=== PATIENT | female | born 1965 | race Caucasian/White ===

== ENCOUNTER → 2018-04-20 | Outpatient (CLI) | payer OTHER ==
[~2018-04-20] MED LIST: MULT-207 PO; PERC5TAB12 PO
[2018-04-20 09:23] LABS: ALBUMIN 3.6 GM/DL (3.4-5.0); AST (GOT) 14 U/L (15-37); BICARBONATE 26.2 MEQ/L (21.0-32.0); BLOOD UREA NITROGEN 9 MG/DL (7-18); CALCIUM 8.8 MG/DL (8.5-10.1); CHLORIDE 106 MEQ/L (98-107); CREATININE 0.71 MG/DL (0.50-1.00); GLOMERULAR FILTRATION RATE 87 ML/MIN (>89); GLUCOSE,FASTING 77 MG/DL (74-99); SODIUM (NA) 141 MEQ/L (136-145)
[2018-04-20 09:27] LABS: AUTOMATED NEUTROPHIL # 0.7 TH/MM3 (1.8-7.7); BASOPHIL % 0.3 % (0.0-2.0); EOSINOPHIL % 2.1 % (0.0-4.0); HEMATOCRIT 38.6 % (35.0-46.0); HEMOGLOBIN 12.9 GM/DL (11.6-15.3); LYMPH % 53.5 % (9.0-44.0); LYMPHOCYTE # 1.2 TH/MM3 (1.0-4.8); MEAN CELL VOLUME 89.3 FL (80.0-100.0); MEAN CORPUSCULAR HEMOGLOBIN 29.9 PG (27.0-34.0); MEAN CORPUSCULAR HGB CONC 33.5 % (32.0-36.0); MONO % 13.6 % (0.0-8.0); MONOCYTE # 0.3 TH/MM3 (0-0.9); NEUT % 30.5 % (16.0-70.0); PLATELET COUNT 256 TH/MM3 (150-450); RED BLOOD COUNT 4.33 MIL/MM3 (4.00-5.30); RED CELL DISTRIBUTION WIDTH 13.8 % (11.6-17.2); WHITE BLOOD COUNT 2.2 TH/MM3 (4.0-11.0)
[2018-04-20 09:29] LABS: ALKALINE PHOSPHATASE 41 U/L (45-117); ALT (GPT) 15 U/L (10-53); TOTAL BILIRUBIN ADULT 0.2 MG/DL (0.2-1.0); TOTAL PROTEIN 6.9 GM/DL (6.4-8.2)
[2018-04-20 10:04] LABS: BACTERIA, URINE RARE /hpf; BILIRUBIN, URINE NEG (NEG); BLOOD, URINE TRACE (NEG); GLUCOSE,URINE NEG (NEG); KETONE, URINE NEG (NEG); NITRITE,URINE NEG (NEG); SQUAMOUS EPITHELIAL CELL URINE 2 /hpf (0-5); URINE COLOR YELLOW (YELLW/STRAW); URINE LEUKOCYTE ESTERASE NEG (NEG)
[2018-04-20 10:10] LABS: LYMPHOCYTES 46 % (9-44); MONOCYTES 13 % (0-8); NEUTROPHIL # MANUAL DIFF 0.8 TH/MM3 (1.8-7.7); POLYS (SEG NEUTROPHILS) 38 % (16-70)
[2018-04-20 10:11] LABS: ACANTHOCYTES OCC (NORMAL)
--- NOTE | 2018-04-20 17:21 | EKG ---
Date Performed: 04/20/2018 Time Performed: 08:26:37 PTAGE: 52 years EKG: Sinus rhythm LOW QRS VOLTAGE IN PRECORDIAL LEADS BORDERLINE ECG NO PREVIOUS TRACING DOCTOR: Yordy Diallo Interpretating Date/Time 04/20/2018 17:19:19
== END ==
LOC: CPRE 07:58
PROVIDERS: ATTEND Obstetrics & Gynecology
DX: Z01.810 Encounter for preprocedural cardiovascular examination (principal); Z01.812 Encounter for preprocedural laboratory examination; N92.0 Excessive and frequent menstruation with regular cycle; D25.9 Leiomyoma of uterus, unspecified; N75.0 Cyst of Bartholin's gland; R10.2 Pelvic and perineal pain; R94.31 Abnormal electrocardiogram [ECG] [EKG]
CPT/HCPCS: 36415; 80053; 81001; 84703; 85007; 85027; 93005

== ENCOUNTER 2018-10-11 05:50 | Inpatient (IN) ==
[2018-10-11] MEDS ORDERED: Metoprolol Tartrate 25 MG Tablet PO ONE (06:37)
[2018-10-11] MEDS ORDERED: Chlorhexidine Gluconate 2% 1 Pack (2 Cloths) TOPICAL ONE (06:37)
[2018-10-11] MEDS ORDERED: Sodium Chlor 0.9% Inj 500 ML IV.SIG SCH (07:00)
[2018-10-11] MEDS ORDERED: ceFAZolin 2 GM Premix Inj 2 GM/50 ML PIGGYBACK IV.SIG SCH (07:00)
[2018-10-11] MEDS ORDERED: Microfibrillar Collagen Hemostat 1 GM Packet TOPICAL ONE (07:08)
[2018-10-11] MEDS ORDERED: Morphine Inj 4 MG/ML Vial ONE (07:08)
[2018-10-11] MEDS ORDERED: fentaNYL Citrate Inj 250 MCG/5 ML Ampul ONE (07:08)
[2018-10-11] MEDS ORDERED: Ibuprofen 600 MG Tablet PO PRN (11:23)
[2018-10-11] MEDS ORDERED: Naloxone Inj 0.4 MG/ML Vial IV.PUSH PRN (11:23)
--- NOTE | 2018-10-11 11:31 | P.BOP ---
- Preoperative Diagnosis (1) Leiomyoma (2) Pelvic pain (3) Dyspareunia (4) Menorrhagia (5) Cyst of left Bartholin's gland duct - Postoperative Diagnosis (1) Dyspareunia (2) Leiomyoma (3) Menorrhagia (4) Pelvic pain (5) Cyst of left Bartholin's gland duct Date of procedure: 10/11/18 Procedure: Exam under anesthesia, left Bartholin gland removal, total abdominal hysterectomy, bilateral salpingectomy Anesthesia: GETA Surgeon: Dorothea Rivera MD Cinema Operator: Kristyn Teixeira Estimated blood loss (mL): 200 IV fluids (mL): 1,600 Urine output (mL): 300 Pathology: other (left bartholin gland cyst, uterus, cervix, bilateral fallopian tubes) Condition: stable Disposition: PACU
[2018-10-11] MEDS ORDERED: Morphine Inj 30 MG/30 ML PCA.VIAL PCA ONE (11:36)
[2018-10-11] MEDS ORDERED: *Meperidine Inj 25 MG/ML Vial PERIprocedural Use ONLY ONE (11:52)
[2018-10-11] MEDS ORDERED: *Ondansetron Inj 4 MG/2 ML Vial PERIprocedural Use ONLY ONE (11:56)
[2018-10-11] MEDS ORDERED: *HYDROmorphone PF Inj 1 MG/ML Ampul PERIprocedural Use ONLY ONE (12:30)
[2018-10-11] MEDS: Morphine Inj 30 MG/30 ML PCA.VIAL PCA PRN ×2 (12:31→20:43)
[2018-10-11] MEDS: Docusate Sodium 100 MG Capsule PO SCH ×2 (20:46→22:11)
--- NOTE | 2018-10-11 22:18 | MP ---
cc: Dorothea Rivera MD DATE OF OPERATION: 10/11/2018 PREOPERATIVE DIAGNOSES: 1. Fibroid uterus. 2. Menorrhagia. 3. Dyspareunia. 4. Left Bartholin gland cyst. POSTOPERATIVE DIAGNOSES: 1. Fibroid uterus. 2. Menorrhagia. 3. Dyspareunia. 4. Left Bartholin gland cyst. PROCEDURE PERFORMED: 1. Exam under anesthesia. 2. Left Bartholin gland removal. 3. Total abdominal hysterectomy with bilateral salpingectomy. SURGEON: Dorothea Rivera MD SILICA FILTER OPERATOR: Kristyn Teixeira MD ANESTHESIA: General endotracheal anesthesia. ESTIMATED BLOOD LOSS: 200 mL. INTRAVENOUS FLUIDS: 1600 mL of lactated Ringer's. URINE OUTPUT: 300 mL. PREOPERATIVE ANTIBIOTICS: Ancef 2 grams IV preoperatively. DEEP VENOUS THROMBOSIS PROPHYLAXIS: SCDs on bilateral extremities. COMPLICATIONS: None. COUNTS: Correct. SPECIMENS: Uterus, cervix, bilateral fallopian tubes, separately left Bartholin gland. INTRAOPERATIVE FINDINGS: A markedly enlarged uterus of approximately 18 cm in size with several fibroids over 3 cm in size, small atrophic-appearing ovaries, normal fallopian tubes, narrow pelvis with prominent sacrum, left Bartholin gland cyst of approximately 3-4 cm in size with a nodular fibrous component noted. PROCEDURE IN DETAIL: After reviewing informed consent, the patient was taken to the operating room where general anesthesia was administered without complication. She was placed in the dorsal lithotomy position in Woody stirrups. The abdomen and perineum were prepped and draped in normal sterile fashion. A West was placed under sterile conditions. The left Bartholin gland excision was performed first. An 11 blade was used to make an incision on the skin deep to the introitus. Approximately a 3 cm incision was made. The Bartholin gland cyst was shelled out with Metzenbaum scissors. There was rupture of the cyst. The cyst capsule was grasped with Allis clamps and was followed out to its distal end. At the distal end, there was noted to be a fibrous component. This was removed in its entirety. The base of the Bartholin gland was made hemostatic with 2-0 chromic running suture. The skin edges were also brought together with 2-0 chromic in a running fashion. Good hemostasis was noted. Gown and gloves were changed. Attention was then turned to the abdomen. A Pfannenstiel skin incision was made with a scalpel and carried down to the underlying layer of fascia with the Bovie. The fascia was incised in the midline and this incision was extended bilaterally with Blair scissors. Kristy clamps were used to elevate the superior aspect of the fascia and the rectus muscles were dissected off bluntly as well as with the aid of Blair scissors. The same was repeated inferiorly. The rectus muscles were in the midline. The peritoneum was entered bluntly. This incision was extended bluntly. The self-retaining retractor was then introduced. The bowel was packed away with moist laparotomy sponges. A self-retaining retractor blade was placed superiorly. There were several fibroids that did need to be removed. Seven myomectomies were performed to enable good visualization of the round ligament and posterior and anterior cul-de-sac. The myomectomies were performed in similar fashion. Pitressin was injected subserosally. The Bovie was used to cut through the serosa until the fibroid was reached. A towel clamp was placed on the superior aspect of the fibroid. Metzenbaum scissors were used to separate the fibroid capsule from the uterus and hemostasis was then ensured with 2-0 chromic in a running fashion. This was performed 7 times. The round ligaments bilaterally were then double ligated and transected. Then, the anterior and posterior broad ligaments were and the bladder flap was created with Metzenbaum scissors in a medial caudal fashion bilaterally. A window was then made in the posterior broad ligament. A Yina clamp was placed across the uteroovarian ligament. The pedicle was double clamped. The pedicle was cut with Blair scissors and double suture ligated with a fore and aft, followed by a free pass of 0 Vicryl. The same was performed bilaterally. Several bites of the Fadumo clamp were performed until the uterine vessels were reached. Each pedicle was clamped, cut and suture ligated with 0 Vicryl. A straight clamp was placed across the edges of the cervix and a curved hysterectomy clamp at the base of the cervix until the specimen was removed. The uterosacrals were suture ligated with a fixation stitch. The vaginal cuff was run with 0 Vicryl in a running locked fashion. The uterosacrals were tied across the midline. Good hemostasis was noted. The fallopian tubes were then transected with a Yina. The specimen was removed with Metzenbaum scissors and then a fore and aft and a free tie were used to secure the pedicle. There was minimal bleeding between the uterosacral pedicle and the prior pedicle. This was run with 4-0 Monocryl with good hemostasis noted. Irrigation was performed. Good hemostasis was noted. Bianca was placed on all pedicles. The moistened laparotomy sponges were then removed after the self-retaining retractor was removed. Counts were correct. The peritoneum was closed with 2-0 chromic in a running fashion. The fascia was then closed with 0 chromic in a running fashion. The subcutaneous tissue was irrigated and suctioned. Good hemostasis was noted. This layer was closed with 2-0 chromic in a running fashion. The skin was closed with 4-0 Monocryl in subcuticular fashion. The standard dressing was placed. The patient was placed in dorsal lithotomy position. Anesthesia was reversed without complication. She was taken to the PACU in stable condition. MD KARLA Wiley/jong , 06:39 PM , 06:51 PM SUMAN
[2018-10-12 05:48] LABS: Baso % (Auto) 0.1 % (0.0-2.0); Hematocrit 33.5 % (35.0-46.0); Hemoglobin 11.3 gm/dL (11.6-15.3); Lymph # (Auto) 1.1 th/mm3 (1.0-4.8); Lymph % (Auto) 11.4 % (9.0-44.0); Mean Corpuscular HGB Conc 33.9 % (32.0-36.0); Mean Corpuscular Hemoglobin 30.8 pg (27.0-34.0); Mono # (Auto) 0.8 th/mm3 (0.0-0.9); Mono % (Auto) 7.8 % (0.0-8.0); Neut # (Auto) 7.8 th/mm3 (1.8-7.7); Neut % (Auto) 80.7 % (16.0-70.0); Platelet Count 209 th/mm3 (150-450); Red Blood Count 3.68 mil/mm3 (4.00-5.30); Red Cell Distribution Width 14.2 % (11.6-17.2); White Blood Count 9.7 th/mm3 (4.0-11.0)
--- NOTE | 2018-10-12 08:27 | P.PNOB ---
Subjective Post op day: 1 Interval history: has not ambulated or been out of bed yet. Feels sleepy Objective Vital Signs/I&O: Vital Signs 10/11/18 11:47 10/11/18 12:00 10/11/18 12:15 Temperature 97.6 F Pulse Rate 106 H 89 103 H Respiratory Rate 22 19 18 Blood Pressure 118/78 137/76 135/76 Pulse Oximetry 100 100 100 10/11/18 12:30 10/11/18 12:45 10/11/18 13:28 Temperature 97.6 F 97.9 F Pulse Rate 89 94 H 87 Respiratory Rate 15 12 20 Blood Pressure 131/73 133/76 117/83 Pulse Oximetry 100 100 100 10/11/18 16:00 10/11/18 20:00 10/11/18 22:15 Temperature 98.4 F 98.0 F Pulse Rate 95 H 67 Respiratory Rate 16 18 18 Blood Pressure 118/78 118/71 Pulse Oximetry 97 97 10/12/18 00:00 10/12/18 00:15 10/12/18 02:08 Temperature 98.1 F Pulse Rate 90 100 H 88 Respiratory Rate 18 16 16 Blood Pressure 111/67 Pulse Oximetry 92 L 94 L 98 10/12/18 04:00 Temperature 98.0 F Pulse Rate 72 Respiratory Rate 18 Blood Pressure 120/60 Pulse Oximetry 98 Intake & Output 10/11/18 10/12/18 10/12/18 18:59 06:59 18:59 Intake Total 1650 / 1650 100 / 100 Output Total 500 / 500 1300 / 1300 Balance 1150 / 1150 -1200 / -1200 Weight 65.9 kg Intake: IV 50 / 50 Ancef 2 GM Premix Inj 2 gm In 50 / 50 50 ml @ 100 mls/hr IV.SIG YARN 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 CARDIOVASCULAR: Regular rate and rhythm without murmurs, gallops, or rubs. RESPIRATORY: Breath sounds equal bilaterally. No accessory muscle use. ABDOMEN/GI: Abdomen soft, non-tender, bowel sounds present. Incision: Clean, dry and intact. GENITOURINARY: Light bleeding. Bartholing excision appears intact, no edema or drainage EXTREMITIES: No cyanosis or edema, non-tender, without signs of DVT. Medications and IVs: Active Medications Diphenhydramine HCl (Benadryl) 25 mg PO Q6H PRN PRN Reason: ITCHING Docusate Sodium (Colace) 100 mg PO BID [facility] Last Admin: 10/11/18 22:11 Dose: Not Given Sodium Chloride (Ns Inj) 500 mls @ 30 mls/hr IV.SIG .Q10H [facility] Lactated Ringer's (Lr 1000 Ml Inj) 1,000 mls @ 125 mls/hr IV.CONT .Q8H [facility] Last Admin: 10/11/18 12:00 Dose: 125 mls/hr Ibuprofen (Motrin) 600 mg PO Q6H PRN PRN Reason: CRAMPING Miscellaneous Information (Misc Nursing Information) 0 each OTHER UNSCH PRN PRN Reason: SEE LABEL COMMENTS Stop: 10/12/18 11:48 Naloxone HCl (Narcan Inj) 0.4 mg IV.PUSH PRN PRN PRN Reason: Resp rate < 10 Ondansetron HCl (Zofran Odt) 4 mg PO Q6H PRN PRN Reason: NAUSEA OR VOMITING Ondansetron HCl (Zofran Inj) 4 mg IV.PUSH Q6H PRN PRN Reason: NAUSEA OR VOMITING Last Admin: 10/12/18 07:26 Dose: 4 mg Oxycodone/Acetaminophen (Percocet 5/325 Mg) 1 tab PO Q4H PRN PRN Reason: PAIN SCALE 1 TO 5 Oxycodone/Acetaminophen (Percocet 5/325 Mg) 2 tab PO Q4H PRN PRN Reason: PAIN SCALE 6 TO 10 Sodium Chloride (Ns Flush) 2 ml IV.FLUSH BID [facility] Last Admin: 10/11/18 22:16 Dose: Not Given Sodium Chloride (Ns Flush) 2 ml IV.FLUSH PRN PRN PRN Reason: FLUSH AFTER USING IV ACCESS Assessment and Plan - Diagnosis (1) S/P THEODORE (total abdominal hysterectomy) Code(s): Z90.710 - Acquired absence of both cervix and uterus Status: Acute - Plan POD 1 s/p theodore and bilateral salpingectomy, left bartholin gland removal - adv diet, ambulate, needs to void - will assess later today to see if ready for discharge.
[2018-10-12] MEDS ORDERED: Ibuprofen Liq 100 MG/5 ML UDC PO PRN (09:00)
[2018-10-12] MEDS: Docusate Sodium 100 MG Capsule PO SCH (09:30)
[2018-10-12] MEDS: Polyethylene Glycol 3350 17 GM Packet PO SCH (16:59)
[2018-10-12] MEDS: Simethicone 80 MG Chew Tablet PO PRN (17:00)
--- NOTE | 2018-10-12 18:29 | P.OBGPN ---
Pt evaluated this evening. Nausea now resolved s/p phenergan. She was able to eat half of dinner. She has had some ambulation and pain well controlled on just ibuprofen. She took miralax and simethicone and feels like gas pain is resolving. She had a temp of 100.7F that has gone down to 99.9 on own. She has iv tylenol ordered and it has not yet been given. Exam: A&O x 3, NAD CV rrr, no murmur Lungs CTAB Abd- incision c/d/i dressing removed, min blood on dressing. Abdomen soft and bowel sounds returning. - min swelling of left labia, no drainage. spotting on peripad. No burning with urination. EXT- no calf pain, no edema. A/P POD 1 s/p rafa, bilateral salpingectomy, left bartholin gland excision. Fever x 1 today. Likely due to stress from surgery, cytokine/IL release. She has a low grade temp presently. She is looking much improved since this morning. Will keep ua/cbc/cmp order. CXR canceled at present as an unlikely cause of temp. Will give iv tylenol for pain control overnight and as antipyretic. Will evaluate again in the morning to assess if ready for discharge.
[2018-10-12 19:10] LABS: Hematocrit 34.5 % (35.0-46.0); Hemoglobin 11.7 gm/dL (11.6-15.3); Lymph # (Auto) 0.7 th/mm3 (1.0-4.8); Lymph % (Auto) 8.4 % (9.0-44.0); Mean Corpuscular Hemoglobin 30.9 pg (27.0-34.0); Mean Corpuscular Volume 90.8 fL (80.0-100.0); Mean Platelet Volume 8.3 fL (7.0-11.0); Mono # (Auto) 0.6 th/mm3 (0.0-0.9); Mono % (Auto) 6.6 % (0.0-8.0); Neut # (Auto) 7.1 th/mm3 (1.8-7.7); Platelet Count 214 th/mm3 (150-450); Red Cell Distribution Width 14.1 % (11.6-17.2); White Blood Count 8.4 th/mm3 (4.0-11.0)
[2018-10-12 19:28] LABS: Alanine Aminotransferase 14 U/L (10-53); Albumin 3.2 g/dL (3.4-5.0); Anion Gap 5 meq/L (5-15); Aspartate Aminotransferase 31 U/L (15-37); Blood Urea Nitrogen 7 mg/dL (7-18); Calcium 8.6 mg/dL (8.5-10.1); Carbon Dioxide 30.1 meq/L (21.0-32.0); Chloride 105 meq/L (98-107); Glomerular Filtration Rate 70 mL/min (>89); Glucose,Random 119 mg/dL (74-106); Potassium 3.7 meq/L (3.5-5.1); Sodium 140 meq/L (136-145)
[2018-10-12 19:31] LABS: Alkaline Phosphatase 44 U/L (45-117); Total Protein 6.8 g/dL (6.4-8.2)
[2018-10-13 00:30] LABS: Bilirubin,Urine Negative (Negative); Clarity,Urine Clear (Clear); Color,Urine Yellow (Yellw/Straw); Glucose,Urine (UA) Negative (Negative); Leukocyte Esterase,Urine Negative (Negative); Nitrite,Urine Negative (Negative); PH,Urine 6.5 (5.0-8.5); Urobilinogen,Urine 0.2 mg/dL (Less than 2)
[2018-10-13 01:01] LABS: RBC,Urine 0-3 /hpf (0-3); Specific Gravity,Urine 1.012 (1.002-1.035); Squamous Epithelial Cell,Urine 0-5 /hpf (0-5); WBC,Urine 0-5 /hpf (0-5)
[2018-10-13] MEDS: Docusate Sodium 100 MG Capsule PO SCH ×2 (04:31→08:37)
[2018-10-13] MEDS ORDERED: Promethazine 25 MG Supp RECTAL PRN (08:26)
[2018-10-13] MEDS: Polyethylene Glycol 3350 17 GM Packet PO SCH (08:37)
--- NOTE | 2018-10-13 08:40 | P.PNOB ---
Subjective Post op day: 2 Interval history: feeling well, has no more nausea, no fever. Voiding well. Pain 4/10 on just iv tylenol overnight. HAs had some ambulation; no gas yet. Objective Vital Signs/I&O: Vital Signs 10/12/18 11:57 10/12/18 16:00 10/12/18 18:00 Temperature 98.2 F 100.7 F H 99.9 F H Pulse Rate 96 H 91 H Respiratory Rate 18 16 Blood Pressure 116/67 114/68 Pulse Oximetry 100 10/12/18 20:00 10/13/18 00:00 10/13/18 04:00 Temperature 98.5 F 98.7 F 98.8 F Pulse Rate 70 83 86 Respiratory Rate 18 18 18 Blood Pressure 119/68 118/71 127/79 Pulse Oximetry 96 99 97 Intake & Output 10/12/18 10/13/18 10/13/18 18:59 06:59 18:59 Intake Total 1000 / 1000 Output Total 1075 / 1075 Balance -75 / -75 Intake: IV 1000 / 1000 LR 1000 mL Inj 1,000 ML @ 125 1000 / 1000 mls/hr IV.CONT .Q8H [facility] Rx#: [id number] Output: Urine 1075 / 1075 Other: # Voids 1 Result Diagrams: 10/12/18 18:43 10/12/18 18:43 Objective Remarks: GENERAL: Well-nourished, well-developed patient. CARDIOVASCULAR: Regular rate and rhythm without murmurs, gallops, or rubs. RESPIRATORY: Breath sounds equal bilaterally. No accessory muscle use. ABDOMEN/GI: Abdomen soft, non-tender, bowel sounds present. Incision: Clean, dry and intact. GENITOURINARY: Light bleeding. Bartholin gland excision site without edema or drainage EXTREMITIES: No cyanosis or edema, non-tender, without signs of DVT. Medications and IVs: Active Medications Diphenhydramine HCl (Benadryl) 25 mg PO Q6H PRN PRN Reason: ITCHING Docusate Sodium (Colace) 100 mg PO BID [facility] Last Admin: 10/13/18 04:31 Dose: Not Given Sodium Chloride (Ns Inj) 500 mls @ 30 mls/hr IV.SIG .Q10H [facility] Lactated Ringer's (Lr 1000 Ml Inj) 1,000 mls @ 125 mls/hr IV.CONT .Q8H [facility] Last Admin: 10/13/18 00:00 Dose: 125 mls/hr Acetaminophen (Ofirmev Inj) 1,000 mg in 100 mls @ 400 mls/hr IV.SIG Q6H PRN PRN Reason: TEMPERATURE > 100.5 F Ibuprofen (Motrin Liq) 400 mg PO Q6H PRN PRN Reason: ABDOMINAL CRAMPING Last Admin: 10/12/18 13:40 Dose: 400 mg Naloxone HCl (Narcan Inj) 0.4 mg IV.PUSH PRN PRN PRN Reason: Resp rate < 10 Ondansetron HCl (Zofran Odt) 4 mg PO Q6H PRN PRN Reason: NAUSEA OR VOMITING Ondansetron HCl (Zofran Inj) 4 mg IV.PUSH Q6H PRN PRN Reason: NAUSEA OR VOMITING Last Admin: 10/12/18 07:26 Dose: 4 mg Oxycodone HCl (Roxicodone Intensol Liq) 5 mg PO Q4H PRN PRN Reason: PAIN SCALE 6 TO 10 Polyethylene Glycol (Miralax) 17 gm PO DAILY [facility] Last Admin: 10/12/18 16:59 Dose: 17 gm Promethazine HCl (Phenergan Inj) 25 mg IM Q6H PRN PRN Reason: NAUSEA Last Admin: 10/12/18 17:09 Dose: 25 mg Promethazine HCl (Phenergan Supp) 25 mg RECTAL Q6H PRN PRN Reason: NAUSEA Simethicone (Mylicon Chew) 80 mg PO PCHS PRN PRN Reason: GAS RETENTION Last Admin: 10/12/18 17:00 Dose: 80 mg Sodium Chloride (Ns Flush) 2 ml IV.FLUSH BID [facility] Last Admin: 10/13/18 04:31 Dose: Not Given Sodium Chloride (Ns Flush) 2 ml IV.FLUSH PRN PRN PRN Reason: FLUSH AFTER USING IV ACCESS Assessment and Plan - Diagnosis (1) S/P THEODORE (total abdominal hysterectomy) Code(s): Z90.710 - Acquired absence of both cervix and uterus Status: Acute - Plan POD 2s/p theodore and bilateral salpingectomy, left bartholin gland removal - cont ambulation, await flatus for d/c - will give po ibuprofen, simethicone, and phenergan suppository prn. She is doing very well with minimal pain medication, not using opiates. d/c home today.
[2018-10-13] MEDS: Simethicone 80 MG Chew Tablet PO PRN (10:44)
== END 2018-10-13 14:03 | disposition home or self-care (01) ==
LOC: HSDI 05:50 → H1EA 13:10
PROVIDERS: ADMIT Obstetrics & Gynecology; ATTEND Obstetrics & Gynecology